=== PATIENT | female | born 1995 | race Two or more races ===

== ENCOUNTER 2022-10-23 16:21 | Emergency (ER) | payer OTHER ==
[2022-10-23 17:03] VITALS: BP 120/74; PULSE 74; RESP 18; TEMP 98.1; BMI 25.8
[2022-10-23] MEDS ORDERED: SODIUM CHLORIDE 0.9% 500 ML INFUS.BAG IV ONE (17:32)
[2022-10-23 18:01] LABS: BASO % 0.1 % (0-2.0); EOS % 0.7 % (0-4.5); HEMATOCRIT 38.1 % (32.4-45.2); HEMOGLOBIN 12.9 GM/dL (10.7-15.3); MCH 29.5 pg (25.7-33.7); MCHC 33.7 g/dl (32.0-36.0); MEAN CELL VOLUME 87.5 fl (80-96); MEAN PLT VOLUME 7.8 fl (7.5-11.1); MONO % 7.2 % (3.8-10.2); PLATELET COUNT 208 10^3/uL (134-434); RBC 4.36 M/mm3 (3.60-5.2); WHITE BLOOD COUNT 4.8 K/mm3 (4.0-10.0)
== END 2022-10-23 21:04 | disposition home or self-care (01) ==
LOC: JER 16:21
DX: O03.9 Complete or unspecified spontaneous abortion without complication (principal); O26.891 Other specified pregnancy related conditions, first trimester; R11.0 Nausea; R42 Dizziness and giddiness; R10.30 Lower abdominal pain, unspecified; Z3A.08 8 weeks gestation of pregnancy
CPT/HCPCS: 36415; 76830-TC; 84702; 85025; 86850; 86900; 86901; 99284-25